=== PATIENT | male | born 2000 | race Caucasian/White ===

== ENCOUNTER 2019-03-23 00:29 | Emergency (ER) | payer OTHER ==
--- NOTE | 2019-03-23 00:59 | ED ---
Medical Screening - HPI Summary HPI Summary: Patient brought by EMS after being found lying in the middle of the road. Per EMS, patient was alert and oriented to self, appeared intoxicated. Patient presents alert with rambling speech. Not oriented to place, but oriented to self and time. Abrasions to both sides of the face, left hand and right side head. Denies medical history. - History of Current Complaint Chief Complaint: EDSubstanceAbuse Stated Complaint: ETOH PER EMS Time Seen by Provider: 03/23/19 00:31 PMH/Surg Hx/FS Hx/Imm Hx Endocrine/Hematology History: Denies: Hx Anticoagulant Therapy Cardiovascular History: Denies: Hx Pacemaker/ICD History: Denies: Hx Dialysis Sensory History: Denies: Hx Eye Prosthesis Opthamlomology History: Denies: Hx Legally Blind EENT History: Denies: Hx Deafness Neurological History: Denies: Hx Dementia Infectious Disease History: No Infectious Disease History: Denies: Traveled Outside the [place] in Last 30 Days - Family History Known Family History: Positive: Non-Contributory - Social History Alcohol Use: Occasionally Substance Use Type: Reports: None Smoking Status (MU): Never Smoked Tobacco Review of Systems Constitutional: Negative Eyes: Negative ENT: Negative Cardiovascular: Negative Respiratory: Negative Gastrointestinal: Negative Genitourinary: Negative Musculoskeletal: Negative Skin: Negative Neurological: Negative Psychological: Normal All Other Systems Reviewed And Are Negative: Yes Physical Exam - Summary Physical Exam Summary: Abrasions to left hand, both sides of face, right-sided head. No trauma noted to mouth, nose. Full range of motion of neck and jaw. No pain with palpation of C-spine, T-spine, L-spine. No pain with palpation of chest, abdomen. Patient moving all 4 extremities freely. No ecchymosis, erythema, deformity, swelling noted anywhere on physical exam. Oriented to person and time. Not oriented to place. Triage Information Reviewed: Yes Vital Signs On Initial Exam: Initial Vitals Temp Pulse Resp BP Pulse Ox 97.6 F 79 20 118/101 100 03/23/19 00:34 03/23/19 00:34 03/23/19 00:34 03/23/19 00:34 03/23/19 00:34 Vital Signs Reviewed: Yes Appearance: Positive: Well-Appearing Skin: Positive: Warm Head/Face: Positive: Normal Head/Face Inspection Eyes: Positive: Normal ENT: Positive: Normal ENT inspection Dental: Negative: Dental Fracture @, Bleeding Respiratory/Lung Sounds: Positive: Clear to Auscultation Cardiovascular: Positive: Normal Abdomen Description: Positive: Nontender Musculoskeletal: Positive: Normal Neurological: Positive: Normal Psychiatric: Positive: Normal AVPU Assessment: Alert - Giuseppe Coma Scale Best Eye Response: 4 - Spontaneous Best Motor Response: 6 - Obeys Commands Best Verbal Response: 5 - Oriented Coma Scale Total: 15 Diagnostics - Vital Signs Vital Signs Temp Pulse Resp BP Pulse Ox 03/23/19 00:34 97.6 F 79 20 118/101 100 - Laboratory Lab Statement: Any lab studies that have been ordered have been reviewed, and results considered in the medical decision making process. Course/Dx - Course Course Of Treatment: Patient brought by EMS after being found lying in the middle of the road. Per EMS, patient was alert and oriented to self, appeared intoxicated. Patient presents alert with rambling speech. Not oriented to place, but oriented to self and time. Abrasions to both sides of the face, left hand and right side head. Denies medical history. Vital signs within normal limits. EtOH 250. signed out to Dr Johns pending pt becoming sober - Diagnoses Provider Diagnoses: Alcohol intoxication Discharge ED - Sign-Out/Discharge Documenting (check all that apply): Sign-Out Patient Signing out patient TO: Kendrick Johns Patient Received Moderate/Deep Sedation with Procedure: No - Discharge Plan Condition: Improved Disposition: HOME Patient Education Materials: Alcohol Intoxication (ED), Abuse of Alcohol (ED) Referrals: [facility] [Outside] - Billing Disposition and Condition Condition: IMPROVED Disposition: Home
--- NOTE | 2019-03-23 06:40 | ED ---
Progress - Progress Note Progress Note: This patient was signed out from GEO Kohler to Dr. Johns, pending disposition, awaiting sobriety. Pt will be signed out to Dr. Lipscomb at shift change at 0700 on 03/23/19, pending sobriety. Course/Dx - Course Course Of Treatment: This patient was signed out from GEO Kohler to Dr. Johns, pending disposition, awaiting sobriety. Pt will be signed out to Dr. Lipscomb at shift change at 0700 on 03/23/19, pending sobriety. - Diagnoses Provider Diagnoses: Alcohol intoxication Discharge ED - Sign-Out/Discharge Documenting (check all that apply): Patient Departure, Sign-Out Patient Signing out patient TO: Naomi Lipscomb - shift change at 0700 on 03/23/19, pending sobriety. Receiving patient FROM: Kendrick Johns Patient Received Moderate/Deep Sedation with Procedure: No - Discharge Plan Condition: Improved Disposition: HOME Patient Education Materials: Alcohol Intoxication (ED), Abuse of Alcohol (ED) Referrals: [facility] [Outside] - Billing Disposition and Condition Condition: IMPROVED Disposition: Home - Attestation Statements Document Initiated by Scribe: Yes Documenting Scribe: Tita Silverman Provider For Whom Scribe is Documenting (Include Credential): Kendrick Johns MD Scribe Attestation: Tita Sher, pilared for Kendrick Johns MD on 03/24/19 at 0619. Scribe Documentation Reviewed: Yes Provider Attestation: The documentation as recorded by the Tita fernandes accurately reflects the service I personally performed and the decisions made by Kendrick azevedo MD Status of Scribe Document: Viewed
--- NOTE | 2019-03-23 07:20 | ED ---
Progress - Progress Note Progress Note: This patient is a 19-year old M presenting to [facility] with alcohol intoxication. Patient is a sign-out from Dr. Kendrick Johns to Dr. Naomi Lipscomb at 0700 on 03/23/19 at shift change pending sobriety. Course/Dx - Course Course Of Treatment: This patient is a 19-year old M presenting to [facility] with alcohol intoxication. Patient is a sign-out from Dr. Kendrick Johns to Dr. Aniceto Lipscomb at 0700 on 03/23/19 at shift change pending sobriety. In the ED after sleeping, patient obtained sobriety and was able to ambulate around the department without difficulty. Patient is awake and oriented x3 and he reports feeling better. He is hemodynamically stable and safe for discharge. Strict return precautions given and he will otherwise follow up with his PCP. Patient will be discharged home with dx of alcohol intoxication. Patient understands and agrees with this plan. - Diagnoses Provider Diagnoses: Alcohol intoxication Discharge ED - Sign-Out/Discharge Documenting (check all that apply): Patient Departure - Discharge, Receiving Sign-Out Receiving patient FROM: Kendrick Johns Patient Received Moderate/Deep Sedation with Procedure: No - Discharge Plan Condition: Improved Disposition: HOME Patient Education Materials: Alcohol Intoxication (ED), Abuse of Alcohol (ED) Referrals: [facility] [Outside] - Billing Disposition and Condition Condition: IMPROVED Disposition: Home - Attestation Statements Document Initiated by Jorje: Yes Documenting Scribe: Panfilo Lemons Provider For Whom Jorje is Documenting (Include Credential): Naomi Lipscomb MD Scribe Attestation: Panfilo Sher scribed for Naomi Lipscomb MD on 03/23/19 at 1802. Scribe Documentation Reviewed: Yes Provider Attestation: The documentation as recorded by the Panfilo fernandes accurately reflects the service I personally performed and the decisions made by me, Naomi Lipscomb MD Status of Scribe Document: Viewed
[2019-03-23 09:38] VITALS: BP 117/61
== END 2019-03-23 09:56 | disposition home or self-care (01) ==
LOC: ED 00:29
DX: F10.929 Alcohol use, unspecified with intoxication, unspecified (principal)
CPT/HCPCS: 36415; 70450; 80320; 99282; G0480

== ENCOUNTER 2019-09-11 23:59 | Emergency (ER) | payer OTHER ==
--- NOTE | 2019-09-12 01:19 | ED ---
Complaint/Male - History of Current Complaint Chief Complaint: EDUrogenitalProblems Time Seen by Provider: 09/12/19 01:07 - Allergies/Home Medications Allergies/Adverse Reactions: Allergies Allergy/AdvReac Type Severity Reaction Status Date / Time No Known Allergies Allergy Verified 09/12/19 00:11 Home Medications: Home Medications NK [No Home Medications Reported] 09/12/19 [History Confirmed 09/12/19] PMH/Surg Hx/FS Hx/Imm Hx Endocrine/Hematology History: Denies: Hx Anticoagulant Therapy Cardiovascular History: Denies: Hx Pacemaker/ICD History: Denies: Hx Dialysis Sensory History: Denies: Hx Eye Prosthesis, Hx Legally Blind, Hx Deafness Opthamlomology History: Denies: Hx Eye Prosthesis, Hx Legally Blind Neurological History: Denies: Hx Dementia Infectious Disease History: No Infectious Disease History: Denies: Traveled Outside the [place] in Last 30 Days - Family History Known Family History: Positive: Non-Contributory - Social History Alcohol Use: Occasionally Substance Use Type: Reports: None Smoking Status (MU): Never Smoked Tobacco Physical Exam Vital Signs On Initial Exam: Initial Vitals Temp Pulse Resp BP Pulse Ox 99.3 F 120 20 149/118 98 09/12/19 00:05 09/12/19 00:05 09/12/19 00:05 09/12/19 00:05 09/12/19 00:05 Diagnostics - Vital Signs Vital Signs Temp Pulse Resp BP Pulse Ox 09/12/19 00:05 99.3 F 120 20 149/118 98 - Laboratory Lab Statement: Any lab studies that have been ordered have been reviewed, and results considered in the medical decision making process.
--- NOTE | 2019-09-12 01:20 | ED ---
GI/ HPI - HPI Summary HPI Summary: Patient complains of sudden onset bilateral testicular pain at 11:15 on 09/11. Denies trauma, penile discharge, prior history of testicle pain. Patient states 02/22 pain lasted about 20 minutes and then resolved. Currently just a dull ache 07/25. Patient does admit to masturbating several times just prior. Denies fever, cough, sore throat, CP, SOB, abdominal pain, change in urine, change in BM. Medical history is none. - History of Current Complaint Chief Complaint: EDUrogenitalProblems Time Seen by Provider: 09/12/19 01:07 Stated Complaint: TESTICULAR PAIN PER EMS Hx Obtained From: Patient Onset/Duration: Started Hours Ago Timing: Constant Severity: Moderate Current Severity: Mild Pain Intensity: 6 Pain Characteristics: Dull, Aching Associated Signs and Symptoms: Positive: Negative - Allergy/Home Medications Allergies/Adverse Reactions: Allergies Allergy/AdvReac Type Severity Reaction Status Date / Time No Known Allergies Allergy Verified 09/12/19 00:11 Home Medications: Home Medications NK [No Home Medications Reported] 09/12/19 [History Confirmed 09/12/19] PMH/Surg Hx/FS Hx/Imm Hx Endocrine/Hematology History: Denies: Hx Anticoagulant Therapy Cardiovascular History: Denies: Hx Pacemaker/ICD History: Denies: Hx Dialysis Sensory History: Denies: Hx Eye Prosthesis, Hx Legally Blind, Hx Deafness Opthamlomology History: Denies: Hx Eye Prosthesis, Hx Legally Blind Neurological History: Denies: Hx Dementia Infectious Disease History: No Infectious Disease History: Denies: Traveled Outside the [place] in Last 30 Days - Family History Known Family History: Positive: Non-Contributory - Social History Alcohol Use: Occasionally Substance Use Type: Reports: None Smoking Status (MU): Never Smoked Tobacco Review of Systems Constitutional: Negative Eyes: Negative ENT: Negative Cardiovascular: Negative Respiratory: Negative Gastrointestinal: Negative Genitourinary: Other Musculoskeletal: Negative Skin: Negative Neurological/Mental Status: Negative Psychological: Normal All Other Systems Reviewed And Are Negative: Yes Physical Exam - Summary Physical Exam Summary: Mild tenderness to palpation of bilateral testicles. No erythema, ecchymosis, deformity, swelling. Otherwise normal exam of genitalia. Triage Information Reviewed: Yes Vital Signs On Initial Exam: Initial Vitals Temp Pulse Resp BP Pulse Ox 99.3 F 120 20 149/118 98 09/12/19 00:05 09/12/19 00:05 09/12/19 00:05 09/12/19 00:05 09/12/19 00:05 Vital Signs Reviewed: Yes Appearance: Positive: Well-Appearing Skin: Positive: Warm Head/Face: Positive: Normal Head/Face Inspection Eyes: Positive: Normal Neck: Positive: Supple Respiratory/Lung Sounds: Positive: Clear to Auscultation Cardiovascular: Positive: Normal Abdomen Description: Positive: Nontender Musculoskeletal: Positive: Normal Neurological: Positive: Normal Psychiatric: Positive: Normal AVPU Assessment: Alert - Giuseppe Coma Scale Best Eye Response: 4 - Spontaneous Best Motor Response: 6 - Obeys Commands Best Verbal Response: 5 - Oriented Coma Scale Total: 15 Procedures - Sedation Patient Received Moderate/Deep Sedation with Procedure: No Diagnostics - Vital Signs Vital Signs Temp Pulse Resp BP Pulse Ox 09/12/19 00:05 99.3 F 120 20 149/118 98 - Laboratory Lab Statement: Any lab studies that have been ordered have been reviewed, and results considered in the medical decision making process. GIGU Course/Dx - Course Course Of Treatment: Patient complains of sudden onset bilateral testicular pain at 11:15 on 09/11. Denies trauma, penile discharge, prior history of testicle pain. Patient states 8/10 pain lasted about 20 minutes and then resolved. Currently just a dull ache /10. Patient does admit to masturbating several times just prior. Denies fever, cough, sore throat, CP, SOB, abdominal pain, change in urine, change in BM. Medical history is none. Vital signs within normal limits. Ultrasound testicle normal. Testicle pain likely secondary to repeated masturbation. Mostly resolved by time of history of present illness. - Diagnoses Provider Diagnoses: Testicular pain, unspecified Discharge ED - Sign-Out/Discharge Documenting (check all that apply): Patient Departure - Discharge Plan Condition: Stable Disposition: HOME Patient Education Materials: Testicle Pain (ED) Referrals: No Primary Care Phys,NOPCP [Primary Care Provider] - Additional Instructions: Return to the ED for any new or worsening symptoms. - Billing Disposition and Condition Condition: STABLE Disposition: Home
[2019-09-12 01:49] VITALS: BP 150/77
== END 2019-09-12 01:45 | disposition home or self-care (01) ==
LOC: ED 23:59
DX: N50.819 Testicular pain, unspecified (principal)
CPT/HCPCS: 76870; 99283